=== PATIENT | male | born 1970 | race Caucasian/White ===

== ENCOUNTER 2018-10-07 18:06 | Emergency (ER) | payer BC, OTHER ==
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
== END 2018-10-07 19:25 | disposition home or self-care (01) ==
LOC: JP.ED 18:06
DX: S77.11XA Crushing injury of right thigh, initial encounter (principal); E03.9 Hypothyroidism, unspecified; Z79.899 Other long term (current) drug therapy; W23.0XXA Caught, crushed, jammed, or pinched between moving objects, initial encounter
CPT/HCPCS: 99283